=== PATIENT | female | born 1940 | race Caucasian/White ===

== ENCOUNTER 2016-11-11 15:11 | Emergency (ER) | payer OTHER, MEDICARE ==
--- NOTE | 2016-11-11 15:25 | PDOC ---
History of Present Illness - General History Source: Patient, Family - History of Present Illness Initial Comments: 11/11/16 15:48 The patient is a 76 year old female with significant past medical history of hypertension who presents to the emergency department s/p fall last night. As per daughter, the patient has been getting more confused since her in March 2016. The daughter found the patient on the floor this afternoon and thinks she could have feel last night or this morning. The daughter noted some blood on the stairs where the patient hit her head. The daughter also noted some dried vomit where she was laying on the floor. The patient is currently complaining of back pain, however she has chronic back pain and is supposed to be having an effusion. The daughter states she is more weak than usual. The history is limited as the patient is a poor historian. PMD: Dr. Varghese <Elena Mccoy - Last Filed: 11/11/16 16:07> <Rosalino Terry - Last Filed: 11/11/16 18:11> - General Chief Complaint: Injury Stated Complaint: FALL Time Seen by Provider: 11/11/16 15:21 Past History <Elena Mccoy - Last Filed: 11/11/16 16:07> - Past Medical History Anemia: No Asthma: No Cancer: No Cardiac Disorders: No CVA: No COPD: No CHF: No Dementia: No Diabetes: No GI Disorders: No Disorders: No HTN: Yes Hypercholesterolemia: No Liver Disease: No Seizures: No Thyroid Disease: No - Surgical History Abdominal Surgery: No Appendectomy: Yes Cardiac Surgery: No Cholecystectomy: Yes Lung Surgery: No Neurologic Surgery: No - Psycho/Social/Smoking Cessation Hx Anxiety: No Suicidal Ideation: No Smoking Status: No Smoking History: Unknown if ever smoked Have you smoked in the past 12 months: No Number of Cigarettes Smoked Daily: 2 If you are a former smoker, when did you quit?: years Hx Alcohol Use: Yes Drug/Substance Use Hx: No Substance Use Type: None Hx Substance Use Treatment: No <Rosalino Terry - Last Filed: 11/11/16 18:11> - Past Medical History Allergies/Adverse Reactions: Allergies Allergy/AdvReac Type Severity Reaction Status Date / Time iodine [Iodine] Allergy Swelling Verified 11/11/16 15:20 Shellfish Allergy Swelling Verified 11/11/16 15:20 Home Medications: Ambulatory Orders Olmesartan/Hydrochlorothiazide [Benicar Hct 40-12.5 mg Tablet] 1 each PO DAILY 10/13/13 Ondansetron [Zofran Odt -] 4 mg SL TID #21 od.tablet 11/11/16 Tramadol HCl 50 mg PO QID #20 tablet MDD 4 11/11/16 Review of Systems - Review of Systems Able to Perform ROS?: No Comments:: 11/11/16 15:49 Unable to attain- patient is confused. <Elena Mccoy - Last Filed: 11/11/16 16:07> *Physical Exam - Vital Signs Last Vital Signs Temp Pulse Resp BP Pulse Ox 98.4 F 92 H 20 155/108 100 11/11/16 15:21 11/11/16 15:21 11/11/16 15:21 11/11/16 15:21 11/11/16 15:21 - Physical Exam Comments: 11/11/16 15:49 GENERAL: +Patient is confused, in no acute distress HEAD: No signs of trauma EYES: PERRLA, EOMI, sclera anicteric, conjunctiva clear ENT: Auricles normal inspection, hearing grossly normal, nares patent, oropharynx clear without exudates. Moist mucosa NECK: Normal ROM, supple, no lymphadenopathy, JVD, or masses LUNGS: Breath sounds equal, clear to auscultation bilaterally. No wheezes, and no crackles HEART: Regular rate and rhythm, normal S1 and S2, no murmurs, rubs or gallops ABDOMEN: Soft, nontender, normoactive bowel sounds. No guarding, no rebound. No masses EXTREMITIES: Normal range of motion, no edema. No clubbing or cyanosis. No cords, erythema, or tenderness NEUROLOGICAL: Cranial nerves II through XII grossly intact. Normal speech SKIN: Warm, Dry, normal turgor, no rashes or lesions noted. <Elena Mccoy - Last Filed: 11/11/16 16:07> Heart Score/ECG Review - ECG Intrepretation Comment:: 11/11/16 16:07 Vent rate: 82 bpm SD interval: 152 ms QRS duration: 62 ms Normal sinus rhythm Nonspecific ST abnormality <Elena Mccoy - Last Filed: 11/11/16 16:07> ED Treatment Course - LABORATORY CBC & Chemistry Diagram: 11/11/16 15:40 11/11/16 15:40 <DariusElena - Last Filed: 11/11/16 16:07> - LABORATORY CBC & Chemistry Diagram: 11/11/16 15:40 11/11/16 15:40 <Rosalino Terry - Last Filed: 11/11/16 18:11> *DC/Admit/Observation/Transfer - Attestations Scribe Attestion: 11/11/16 15:36 Documentation prepared by Elena Mccoy, acting as medical scientist for Rosalino Terry DO. <DariusElena - Last Filed: 11/11/16 16:07> - Attestations Physician Attestion: 11/11/16 15:21 I, Dr. Rosalino Terry, attest that this document has been prepared under my direction and personally reviewed by me in its entirety. I further attest, that it accurately reflects all work, treatment, procedures and medical decision -making performed by me. <Rosalino Terry - Last Filed: 11/11/16 18:11> Diagnosis at time of Disposition: Concussion Qualifiers: Encounter type: initial encounter Loss of consciousness presence/duration: with LOC of unspecified duration Qualified Code(s): S06.0X9A - Concussion with loss of consciousness of unspecified duration, initial encounter Fall Qualifiers: Encounter type: initial encounter Qualified Code(s): W19.XXXA - Unspecified fall, initial encounter - Discharge Dispostion Disposition: HOME Condition at time of disposition: Good - Prescriptions Prescriptions: Tramadol HCl 50 mg PO QID #20 tablet MDD 4 Ondansetron [Zofran Odt -] 4 mg SL TID #21 od.tablet - Referrals Referrals: Jacques Varghese MD [Primary Care Provider] - - Patient Instructions Printed Discharge Instructions: DI for Closed Head Injury, DI for Concussion Additional Instructions: Sorry that you all have to go through this .... Tramadol is for pain and Zofran is for nausea. Take them only if she absolutely needs them. She will need some extra support now. Best- Dr. Rosalino Terry
[2016-11-11 15:26] VITALS: BP 155/108; PULSE 92; TEMP 98.4; BMI 20.7
[2016-11-11 15:51] LABS: BASOPHIL 0.3 % (0-2.0); MCH 34.2 pg (25.7-33.7); MCHC 34.7 g/dl (32.0-36.0); MEAN CELL VOLUME 98.5 fl (80-96); NEUTROPHILS 92.2 % (42.8-82.8); PLATELET COUNT 281 K/MM3 (134-434); RDW 13.6 % (11.6-15.6); WHITE BLOOD COUNT 9.9 K/mm3 (4.0-10.0)
[2016-11-11 16:19] LABS: INR 0.97 (0.82-1.09); PROTHROMBIN TIME (PATIENT) 10.7 SEC (9.98-11.88)
[2016-11-11 16:21] LABS: ALBUMIN 4.4 g/dl (3.4-5.0); ANION GAP 14 (8-16); BILIRUBIN,TOTAL 1.8 mg/dL (0.2-1.0); CALCIUM 9.2 mg/dL (8.5-10.1); CO2 27 mmol/L (21-32); CREATININE 0.6 mg/dL (0.55-1.02); GLUCOSE,RANDOM 130 mg/dL (74-106); SGOT/AST 56 U/L (15-37); SGPT/ALT 33 U/L (12-78); TOT PROT 7.4 g/dl (6.4-8.2)
[2016-11-11 16:23] LABS: ALK PHOS 131 U/L (45-117); TROPONIN I < 0.02 ng/ml (0.00-0.05)
[2016-11-11] MEDS ORDERED: ACETAMINOPHEN INJECTION 100 ML IVPB ONE (16:45)
[2016-11-11] MEDS ORDERED: ACETAMINOPHEN 1000 MG/100 ML VIAL (NON FORMULARY) IVPB ONE (17:09)
[2016-11-11] MEDS ORDERED: DIPHTH,PERTUSS(ACELL),TET VAC 0.5 ML VIAL IM ONE (18:24)
--- NOTE | 2016-11-12 09:43 | EKG ---
Test Reason : Blood Pressure : / mmHG Vent. Rate : 082 BPM Atrial Rate : 082 BPM P-R Int : 152 ms QRS Dur : 062 ms QT Int : 396 ms P-R-T Axes : 076 036 068 degrees QTc Int : 462 ms POOR DATA QUALITY, INTERPRETATION MAY BE ADVERSELY AFFECTED NORMAL SINUS RHYTHM NONSPECIFIC ST ABNORMALITY ABNORMAL ECG Confirmed by KELLY GORDON MD ([id number]) on 11/12/2016 9:42:36 AM Referred By: Confirmed By:KELLY GORDON MD
== END 2016-11-11 18:51 | disposition home or self-care (01) ==
LOC: JER 15:11
DX: S06.0X9A Concussion with loss of consciousness of unspecified duration, initial encounter (principal); I10 Essential (primary) hypertension; W10.8XXA Fall (on) (from) other stairs and steps, initial encounter; Y93.89 Activity, other specified; Y92.018 Other place in single-family (private) house as the place of occurrence of the external cause
CPT/HCPCS: 36415; 70450-TC; 71010-TC; 72125-TC; 80053; 82550; 82553; 84484; 85025; 85610; 93005; 93010; 99282-25

== ENCOUNTER 2020-08-18 10:25 | Emergency (ER) | payer OTHER, MEDICARE ==
[2020-08-18 10:32] VITALS: BMI 21.7
[2020-08-18] MEDS ORDERED: ACETAMINOPHEN 1000 MG/100 ML VIAL (NON FORMULARY) IVPB ONE (10:54)
[2020-08-18] MEDS ORDERED: ACETAMINOPHEN INJECTION 100 ML IVPB ONE (11:02)
[2020-08-18 11:47] LABS: EPITHELIAL CELLS FEW /hpf
[2020-08-18 11:48] LABS: ALBUMIN 4.2 g/dl (3.4-5.0); BILIRUBIN,TOTAL 0.7 mg/dl (0.2-1); CALCIUM 9.3 mg/dl (8.5-10); CREATININE 0.7 mg/dl (0.55-1.3); POTASSIUM 4.3 mmol/L (3.5-5.1); TOT PROT 6.7 g/dl (6.4-8.2)
[2020-08-18 11:49] LABS: BASO % 1.5 % (0-2.0); EOS % 2.5 % (0-4.5); HEMATOCRIT 38.3 % (32.4-45.2); HEMOGLOBIN 12.9 GM/dl (10.7-15.3); LYMPH % 22.7 % (8-40); MCH 31.8 pg (25.7-33.7); MCHC 33.7 g/dl (32.0-36.0); MEAN CELL VOLUME 94.4 fl (80-96); MEAN PLT VOLUME 7.7 fl (7.5-11.1); MONO % 6.2 % (3.8-10.2); NEUT % 67.1 % (42.8-82.8); PLATELET COUNT 296 K/MM3 (134-434); RBC 4.06 M/mm3 (3.60-5.2); RDW 12.4 % (11.6-15.6)
[2020-08-18 13:58] VITALS: BP 151/79; PULSE 71; TEMP 98.6
== END 2020-08-18 14:50 | disposition home or self-care (01) ==
LOC: FER 10:25
PROC: 3E033GC Introduction of Other Therapeutic Substance into Peripheral Vein, Percutaneous Approach (ICD-10-PCS; principal; 2020-08-18)
DX: R10.84 Generalized abdominal pain (principal)
CPT/HCPCS: 36415; 71045-TC-FY; 74176-TC; 80053; 81003; 81015; 82550; 82553; 83605; 83690; 84484; 85025; 93005; 99285-25; J0131

== ENCOUNTER 2023-11-19 13:49 | Emergency (ER) | payer OTHER, MEDICARE ==
[2023-11-19 14:19] VITALS: BP 137/74; PULSE 85; RESP 20; TEMP 97.8; BMI 19.8
[2023-11-19] MEDS ORDERED: HALOPERIDOL LACTATE 5 MG/ML ONE (15:10)
[2023-11-19] MEDS: HALOPERIDOL LACTATE 5 MG/ML IM ONE (15:16)
[2023-11-19] MEDS ORDERED: MIDAZOLAM HCL 5 MG/1 ML Single Dose Vial ONE (16:18)
[2023-11-19] MEDS: MIDAZOLAM HCL 5 MG/1 ML Single Dose Vial IM ONE (16:24)
[2023-11-19 17:21] LABS: BASO % 0.6 % (0-2.0); EOS % 1.2 % (0-4.5); HEMATOCRIT 39.4 % (32.4-45.2); HEMOGLOBIN 13.4 GM/dL (10.7-15.3); LYMPH % 13.7 % (8-40); MCHC 34.1 g/dl (32.0-36.0); MEAN CELL VOLUME 90.9 fl (80-96); MEAN PLT VOLUME 7.5 fl (7.5-11.1); MONO % 5.8 % (3.8-10.2); NEUT % 78.7 % (42.8-82.8); PLATELET COUNT 291 10^3/uL (134-434); RBC 4.33 M/mm3 (3.60-5.2); WHITE BLOOD COUNT 7.5 K/mm3 (4.0-10.0)
[2023-11-19 17:34] LABS: ALBUMIN 3.4 g/dl (3.4-5.0); BLOOD UREA NITROGEN 11.9 mg/dL (7-18); CALCIUM 9.1 mg/dL (8.5-10.1)
[2023-11-19] MEDS ORDERED: MIDAZOLAM HCL 2 MG/2 ML SINGLE DOSE VIAL ONE (17:36)
[2023-11-19] MEDS: MIDAZOLAM HCL 2 MG/2 ML SINGLE DOSE VIAL IVPUSH ONE (17:36)
[2023-11-19 17:37] LABS: CREATININE 0.8 mg/dL (0.55-1.3)
[2023-11-19 17:39] LABS: BILIRUBIN,TOTAL 0.4 mg/dL (0.2-1); TOT PROT 6.9 g/dl (6.4-8.2)
[2023-11-19 18:14] LABS: EPI CELLS 6 /uL (0-25.1); HYALINE CASTS 0 /uL (0-3.1); PH,URINE 7.5 (5.0-8.0); URINE APPEARANCE CLEAR; URINE BACTERIA >9,000 /uL (0-1359); URINE BILIRUBIN NEGATIVE (NEGATIVE); URINE COLOR YELLOW; URINE GLUCOSE (UA) NEGATIVE (NEGATIVE); URINE KETONE NEGATIVE (NEGATIVE); URINE LEUK ESTERASE TRACE (NEGATIVE); URINE NITRITE NEGATIVE (NEGATIVE); URINE PROTEIN NEGATIVE (NEGATIVE); URINE RBC 16 /uL (0-23.9); URINE UROBILINOGEN 0.2 mg/dL (0.2-1.0); URINE WBC 32 /uL (0-25.8)
[2023-11-19] MEDS ORDERED: CEFTRIAXONE 1 GM/50 ML BAG ONE (18:49)
[2023-11-19] MEDS: CEFTRIAXONE 1,000 MG in DEXTROSE 5%-WATER - 50 ML IVPB ONE (19:09)
[2023-11-19] MEDS: ACETAMINOPHEN 1000 MG/100 ML BAG IVPB ONE (19:09)
== END 2023-11-19 20:34 | disposition home or self-care (01) ==
LOC: JER 13:49
PROC: 3E03329 Introduction of Other Anti-infective into Peripheral Vein, Percutaneous Approach (ICD-10-PCS; principal; 2023-11-19)
PROC: 3E033NZ Introduction of Analgesics, Hypnotics, Sedatives into Peripheral Vein, Percutaneous Approach (ICD-10-PCS; 2023-11-19)
PROC: 3E023NZ Introduction of Analgesics, Hypnotics, Sedatives into Muscle, Percutaneous Approach (ICD-10-PCS; 2023-11-19)
PROC: 3E023GC Introduction of Other Therapeutic Substance into Muscle, Percutaneous Approach (ICD-10-PCS; 2023-11-19)
DX: N39.0 Urinary tract infection, site not specified (principal); R10.11 Right upper quadrant pain; R45.1 Restlessness and agitation
CPT/HCPCS: 36415; 71045-TC-FY; 74176-TC; 80053; 81003; 83605; 84484; 85025; 87086; 87186; 93005; 93010; 99285-25

== ENCOUNTER 2024-04-21 18:11 | Inpatient (IN) | payer OTHER, MEDICARE ==
[2024-04-21] MEDS ORDERED: MIDAZOLAM HCL 2 MG/2 ML SINGLE DOSE VIAL ONE (18:21)
[2024-04-21] MEDS: MIDAZOLAM HCL 2 MG/2 ML SINGLE DOSE VIAL IVPUSH ONE (19:02)
[2024-04-21 19:08] LABS: BASO % 0.4 % (0-2.0); EOS % 1.8 % (0-4.5); HEMATOCRIT 36.8 % (32.4-45.2); HEMOGLOBIN 12.4 GM/dL (10.7-15.3); LYMPH % 14.3 % (8-40); MCH 31.3 pg (25.7-33.7); MCHC 33.6 g/dl (32.0-36.0); MEAN CELL VOLUME 93.1 fl (80-96); MEAN PLT VOLUME 7.1 fl (7.5-11.1); MONO % 6.2 % (3.8-10.2); NEUT % 77.3 % (42.8-82.8); PLATELET COUNT 298 10^3/uL (134-434); RBC 3.95 M/mm3 (3.60-5.2); RDW 14.8 % (11.6-15.6); WHITE BLOOD COUNT 6.7 K/mm3 (4.0-10.0)
[2024-04-21] MEDS ORDERED: DEXAMETHASONE SOD PHOSPHATE 10 MG/1 ML VIAL ONE (19:15)
[2024-04-21 19:18] VITALS: BMI 17.5
[2024-04-21 19:20] LABS: PROTHROMBIN TIME (PATIENT) 11.3 SEC (9.7-13.0)
[2024-04-21 19:23] LABS: ACTIVATED PTT 30.1 SECONDS (25.2-36.5)
[2024-04-21 19:33] LABS: POTASSIUM 4.7 mmol/L (3.5-5.1)
[2024-04-21 19:34] LABS: ALBUMIN 3.6 g/dl (3.4-5.0); CALCIUM 8.9 mg/dL (8.5-10.1)
[2024-04-21 19:36] LABS: BLOOD UREA NITROGEN 13.3 mg/dL (7-18)
[2024-04-21 19:38] LABS: CREATININE 0.7 mg/dL (0.55-1.3)
[2024-04-21 19:40] LABS: BILIRUBIN,TOTAL 0.7 mg/dL (0.2-1)
[2024-04-21] MEDS: DEXAMETHASONE SOD PHOSPHATE 10 MG/1 ML VIAL IVPUSH ONE (19:40)
[2024-04-21] MEDS: MANNITOL 25% 12.5 GM/50 ML VIAL IVPB ONE (19:40)
[2024-04-21] MEDS ORDERED: MORPHINE SULFATE 2 MG/ML SYRINGE ONE ×2 (20:27→20:39)
[2024-04-21] MEDS: morphine CARPU-JECT 2 MG/1 ML DISP.SYRIN IVPUSH ONE (20:30)
[2024-04-22 07:15] VITALS: BP 133/73; PULSE 72; TEMP 97.7
[2024-04-22] MEDS: PANTOPRAZOLE SODIUM 40 MG VIAL IVPUSH SCH (11:15)
[2024-04-22] MEDS: DEXAMETHASONE SOD PHOSPHATE 4 MG/1 ML VIAL IVPUSH SCH (11:15)
[2024-04-22] MEDS: MANNITOL 25% 12.5 GM/50 ML VIAL IVPB SCH (11:35)
[2024-04-22] MEDS: levETIRAcetam 500 MG/5 ML INJECTION VIAL IVPB SCH (11:35)
[2024-04-24 08:21] VITALS: RESP 16
[2024-04-24] MEDS ORDERED: FENTANYL PATCH WASTE TD PRN (12:25)
[2024-04-24] MEDS: fentaNYL 12mcg/hr PATCH.TD72 TD SCH (13:29)
[2024-04-24] MEDS: morphine SULFATE 10 MG/5 ML UNIT-DOSE CUP PO PRN (22:13)
[2024-04-25] MEDS: MORPHINE SULFATE 2 MG/ML SYRINGE IVPUSH ONE (19:18)
== END 2024-04-27 13:00 | disposition home or self-care (01) | DRG 82 ==
LOC: JER 18:11 → OBSVTOIN 19:00 → JERBED 19:00 → J4W 21:33
PROVIDERS: ADMIT Internal Medicine; ATTEND Family Medicine
DX: S06.2XAA Diffuse traumatic brain injury with loss of consciousness status unknown, initial encounter (principal); S06.A0XA Traumatic brain compression without herniation, initial encounter; R47.01 Aphasia; F03.90 Unspecified dementia, unspecified severity, without behavioral disturbance, psychotic disturbance, mood disturbance, and anxiety; R47.81 Slurred speech; W18.30XA Fall on same level, unspecified, initial encounter; Y92.099 Unspecified place in other non-institutional residence as the place of occurrence of the external cause; Y99.9 Unspecified external cause status; Z66 Do not resuscitate
CPT/HCPCS: 36415; 70450-TC; 80053; 80061; 82550; 83036; 84484; 85025; 85610; 85730; 86850; 86900; 86901; 93005; 93010; 99285-25; J1100